=== PATIENT | female | born 2000 | race Caucasian/White ===

== ENCOUNTER 2018-02-20 22:10 | Emergency (ER) | payer OTHER ==
[~2018-02-20] VITALS: Ht 165.1 cm; Wt 116.7 kg
[2018-02-20 22:15] VITALS: Ht 165.1 cm; Wt 116.7 kg
[2018-02-20 23:18] VITALS: BP 140/85
== END 2018-02-20 23:18 | disposition home or self-care (01) ==
LOC: ED 22:10
DX: H60.92 Unspecified otitis externa, left ear (principal); I10 Essential (primary) hypertension